=== PATIENT | female | born 1995 | race Caucasian/White ===

== ENCOUNTER 2017-10-27 14:58 | Emergency (ER) | payer MEDICAID ==
[~2017-10-27] VITALS: Ht 152.4 cm; Wt 44.5 kg
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
[2017-10-27] MEDS ORDERED: LIDOCAINE/PRILOCAINE (5GM) 5 GM TUBE TP ONE ×2 (15:21→15:30)
[2017-10-27] MEDS ORDERED: oxyCODONE/APAP (5/325 MG) 1 UDTAB TABLET ONE (15:22)
[2017-10-27] MEDS ORDERED: IBUPROFEN 600 MG TABLET PO ONE ×2 (15:23→15:30)
[2017-10-27] MEDS ORDERED: TDAP [DIPH/PERTUSSIS/TET] 0.5 ML VIAL IM ONE ×2 (15:23→15:30)
[2017-10-27] MEDS ORDERED: oxyCODONE/APAP (5/325 MG) 1 UDTAB TABLET PO ONE (15:30)
--- NOTE | 2017-10-27 15:33 | NUR ---
PATIENT MEDICATED PER MD ORDERS.
--- NOTE | 2017-10-27 15:47 | NUR ---
WOUND CARE DONE AT BEDSIDE BY ROSIE BALDERAS
[2017-10-27 15:48] VITALS: BP 114/71
--- NOTE | 2017-10-27 15:48 | NUR ---
Patient discharged to home in stable condition. Written and verbal after care instructions given. Patient verbalizes understanding of instruction.
== END 2017-10-27 15:48 | disposition home or self-care (01) ==
LOC: ER 15:00
DX: S80.812A Abrasion, left lower leg, initial encounter (principal); S80.811A Abrasion, right lower leg, initial encounter; S40.811A Abrasion of right upper arm, initial encounter; Y99.8 Other external cause status; V47.6XXA Car passenger injured in collision with fixed or stationary object in traffic accident, initial encounter; Y93.89 Activity, other specified; Y92.413 State road as the place of occurrence of the external cause; M54.5 Low back pain
CPT/HCPCS: 90471; 90715; 99283; A4606; A6402; Z7610

== ENCOUNTER 2019-09-21 11:35 | Emergency (ER) | payer MEDICAID ==
[~2019-09-21] VITALS: Ht 149.9 cm; Wt 43.5 kg
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
[2019-09-21] MEDS ORDERED: ACETAMINOPHEN ES 500 MG TABLET ONE (13:22)
--- NOTE | 2019-09-21 13:29 | NUR ---
Patient discharged to home in stable condition. Written and verbal after care instructions given. Patient verbalizes understanding of instruction.IV removed. Catheter intact and site benign. Pressure and 4x4 applied to site. No bleeding noted.
[2019-09-21 13:30] VITALS: BP 110/87
[2019-09-21] MEDS ORDERED: ACETAMINOPHEN ES 500 MG TABLET PO ONE (13:30)
== END 2019-09-21 13:31 | disposition home or self-care (01) ==
LOC: ER 11:35
DX: R56.9 Unspecified convulsions (principal)

== ENCOUNTER 2019-10-02 12:29 | Emergency (ER) | payer MEDICAID ==
[~2019-10-02] VITALS: Ht 149.9 cm; Wt 50.8 kg
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
[2019-10-02] MEDS ORDERED: MORPHINE SULFATE INJ 2 MG/ML DISP.SYRIN IV ONE (13:00)
[2019-10-02] MEDS ORDERED: IV NS 0.9% 1,000 ML BAG IV ONE (13:00)
[2019-10-02] MEDS ORDERED: ONDANSETRON HCL/PF 4 MG/2 ML VIAL IVP ONE (13:00)
[2019-10-02] MEDS ORDERED: BACITRACIN ZINC OINT (15 GM) 15 GM TUBE TP SCH (13:00)
[2019-10-02] MEDS ORDERED: KETOROLAC TROMETHAMINE INJ 30 MG/ML VIAL IV ONE (13:00)
[2019-10-02] MEDS ORDERED: KETOROLAC TROMETHAMINE 15 MG/ML VIAL ONE (13:03)
[2019-10-02] MEDS ORDERED: MORPHINE SULFATE INJ 4 MG/ML DISP.SYRIN ONE (13:03)
[2019-10-02] MEDS ORDERED: ONDANSETRON HCL/PF 4 MG/2 ML VIAL ONE (13:03)
--- NOTE | 2019-10-02 13:10 | NUR ---
[facility] called for consult
--- NOTE | 2019-10-02 13:54 | NUR ---
CALLED [facility]URN [facility], WAS TOLD TO EXPECT CALL IN 10-15 MINS
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
[2019-10-02] MEDS ORDERED: HYDROMORPHONE 1 MG/1 ML DISP.SYRIN IV ONE (14:30)
[2019-10-02] MEDS ORDERED: HYDROMORPHONE 1 MG/1 ML DISP.SYRIN ONE (14:44)
--- NOTE | 2019-10-02 15:07 | NUR ---
Patient discharged to home in stable condition. Written and verbal after care instructions given. Patient verbalizes understanding of instruction. IV removed. Catheter intact and site benign. Pressure and 4x4 applied to site. No bleeding noted.
[2019-10-02 15:09] VITALS: BP 118/74
== END 2019-10-02 15:09 | disposition home or self-care (01) ==
LOC: ER 12:30
DX: T22.241A Burn of second degree of right axilla, initial encounter (principal); R56.9 Unspecified convulsions; X08.8XXA Exposure to other specified smoke, fire and flames, initial encounter; Y93.89 Activity, other specified; Y92.89 Other specified places as the place of occurrence of the external cause; Y99.8 Other external cause status
CPT/HCPCS: 16020; 96374; 96375; 99284; A6253; A6403; J1170; J1885; J2270; J2405; J7030

== ENCOUNTER 2019-11-14 11:57 | Emergency (ER) | payer MEDICAID ==
[~2019-11-14] VITALS: Ht 149.9 cm; Wt 44.5 kg
--- NOTE | 2019-11-14 12:02 | NUR ---
DUSTIN 58 FROM HOME FOR WITNESSED SEIZURE. PATIENT C/O HEADACHE AND R RIB AREA PAIN. TO ER BED , HOOKED TO MONITOR, CHANGED TO HOSP GOWN, PROVIDED W WARM BLANKET, PATIENT AOx4 , BREATHING EVEN AND UNLABORED. AWAITING MD CHANCE.
--- NOTE | 2019-11-14 12:22 | NUR ---
DR PA AT BEDSIDE
[2019-11-14] MEDS ORDERED: LACOSAMIDE ORAL SOLN 50 MG/5 ML UDC PO STA (12:26)
[2019-11-14] MEDS ORDERED: LACOSAMIDE ORAL SOLN 50 MG/5 ML UDC ONE (13:22)
[2019-11-14] MEDS ORDERED: IBUPROFEN 600 MG TABLET PO ONE ×2 (13:23→13:30)
--- NOTE | 2019-11-14 13:49 | NUR ---
IV removed. Catheter intact and site benign. Pressure and 4x4 applied to site. No bleeding noted.Patient discharged to home in stable condition. Written and verbal after care instructions given. Patient verbalizes understanding of instruction.
[2019-11-14 13:50] VITALS: BP 106/69
== END 2019-11-14 13:50 | disposition home or self-care (01) ==
LOC: ER 11:58
DX: G40.909 Epilepsy, unspecified, not intractable, without status epilepticus (principal)

== ENCOUNTER 2020-08-31 13:12 | Emergency (ER) | payer MEDICAID ==
[~2020-08-31] VITALS: Ht 149.9 cm; Wt 42.2 kg
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
--- NOTE | 2020-08-31 13:36 | NUR ---
seen and evaluated by MD with new orders noted
[2020-08-31 13:49] LABS: BASOPHILS % (AUTO) 0.6 % (0.0-2.0); EOSINOPHILS % (AUTO) 1.3 % (0.0-6.0); HEMATOCRIT 38 % (33-45); HEMOGLOBIN 12.4 g/dL (11.5-14.8); LYMPHOCYTES # (AUTO) 1.3 /CMM (0.8-4.8); LYMPHOCYTES % (AUTO) 25.9 % (20.0-44.0); MEAN CORPUSCULAR HGB CONC 33 g/dl (31.0-36.0); MEAN CORPUSCULAR VOLUME 87 fL (82-100); MONOCYTES # (AUTO) 0.3 /CMM (0.1-1.30); MONOCYTES % (AUTO) 6.7 % (2.0-12.0); NEUTROPHILS # (AUTO) 3.3 /CMM (1.8-8.9); NEUTROPHILS % (AUTO) 65.5 % (43.0-81.0); PLATELET COUNT (AUTO) 176 /CMM (150-450); RED BLOOD CELL COUNT(AUTO) 4.34 MIL/uL (4.0-5.2)
--- NOTE | 2020-08-31 13:59 | NUR ---
pt out for ct
[2020-08-31 14:07] LABS: CALCIUM, SERUM 8.7 mg/dL (8.5-10.1); CREATININE 0.7 mg/dL (0.6-1.3); POTASSIUM 3.8 mmol/L (3.5-5.1)
--- NOTE | 2020-08-31 14:15 | NUR ---
[employer] unit [id number] at bedside to interview pt
[2020-08-31 14:17] LABS: ALBUMIN 3.9 g/dL (3.4-5.0); BILIRUBIN,DIRECT 0.1 mg/dL (0.0-0.2); BILIRUBIN,TOTAL 0.3 mg/dL (0.2-1.0); TOTAL PROTEIN, SERUM 7.2 g/dL (6.4-8.2)
--- NOTE | 2020-08-31 14:24 | NUR ---
SEEN AND EVALUATED BY DR. MAS
[2020-08-31 15:57] VITALS: BP 121/65
== END 2020-08-31 16:01 | disposition home or self-care (01) ==
LOC: ER 13:17
DX: S02.40CA Maxillary fracture, right side, initial encounter for closed fracture (principal); G40.909 Epilepsy, unspecified, not intractable, without status epilepticus; R94.31 Abnormal electrocardiogram [ECG] [EKG]; W23.1XXA Caught, crushed, jammed, or pinched between stationary objects, initial encounter; Y93.89 Activity, other specified; Y92.89 Other specified places as the place of occurrence of the external cause; Y99.8 Other external cause status
CPT/HCPCS: 36415; 70450; 70486; 72125; 80048; 80076; 85025; 85730; 93005; 99285; A6403